=== PATIENT | male | born 1950 | race Caucasian/White ===

== ENCOUNTER 2020-12-18 15:50 | Observation (INO) | payer MEDICARE ==
[2020-12-18] MEDS ORDERED: NORCO 5/325 MG PO PRN (16:21)
[2020-12-18] MEDS ORDERED: MORPHINE SULFATE 4 MG INJ IV PRN (16:22)
[2020-12-18] MEDS ORDERED: MEDICATION INTERVENTION MC SCH ×2 (17:00)
--- NOTE | 2020-12-18 17:01 | PCM.HP ---
History of Present Illness - Chief Complaint Chief Complaint: HYPOXIA History of Present Illness: is a 70 year old male patient of Dr Mcclelland who had an elective outpatient cholecystectomy, after the procedure he was hypoxic requiring 4L oxygen to maintain saturations, he denies chest pain or shortness of breath. has a longstanding history of copd and cardiac disease. he is currently stable and resting but arouses easily and answers questions. has some mild abdominal discomfort, feels very fatigued and weak but no other specific complaints. - Review of Systems Constitutional: No Fever, No Chills Respiratory: No Cough, No Short Of Breath Cardiac: No Chest Pain, No Edema, No Syncope Abdominal/Gastrointestinal: Abdominal Pain, No Nausea, No Vomiting, No Diarrhea Skin: No Rash All Other Systems: Reviewed and Negative Medications & Allergies Home Medications: Home Medication List Amiodarone HCl 200 mg [Cordarone 200 MG] 200 mg PO DAILY 12/18/14 [History Confirmed 12/18/20] Amlodipine Besylate 5 mg [Norvasc 5 mg] 5 mg PO DAILY 12/18/14 [History Confirmed 12/18/20] Furosemide 20 mg PO BID 12/18/14 [History Confirmed 12/18/20] Losartan/Hydrochlorothiazide [Losartan-Hctz 100-25 mg Tab] 1 tab PO DAILY 12/18/14 [History Confirmed 12/18/20] Metoprolol Tartrate 50 mg [Lopressor 50 MG] 100 mg PO BID 12/18/14 [History Confirmed 12/18/20] Potassium Chloride 20 Meq [Klor-Con 20 MEQ] 20 meq PO DAILY 12/18/14 [History Confirmed 12/18/20] Warfarin Sodium 5 mg PO DAILY 12/18/14 [History Confirmed 12/18/20] Arformoterol Tartrate [Brovana] 15 mcg IH BID 12/05/20 [History Confirmed 12/18/20] Empagliflozin [Jardiance] 10 mg PO DAILY 12/05/20 [History Confirmed 12/18/20] Ezetimibe 10 mg [Zetia 10 MG] 10 mg PO DAILY 12/05/20 [History Confirmed 12/18/20] Tamsulosin HCl 0.4 mg [Flomax 0.4 MG] 0.4 mg PO DAILY 12/05/20 [History Confirmed 12/18/20] Hydrocodone/Acetaminophen [Hydrocodone-Acetamin 5-325 mg ] 1 tab PO Q4H PRN 4 Days #24 tablet MDD 6 12/18/20 [Rx Confirmed 12/18/20] [place]-3 Fatty Acids/Fish Oil [Fish Oil 1,200 mg Softgel] 1 cap PO BID #0 12/18/20 [Rx Confirmed 12/18/20] Allergies/Adverse Reactions: Allergies Allergy/AdvReac Type Severity Reaction Status Date / Time digoxin AdvReac Severe Verified 12/18/20 10:31 - Past Medical History Past Medical History: Yes Neurological History: No Pertinent History ENT History: No Pertinent History Cardiac History: Aneurysm, Arrhythmia, Coronary Artery Disease, High Cholesterol, Hypertension, Myocardial Infarction ([place]) Respiratory History: COPD Endocrine Medical History: Diabetes Type II Musculoskelatal History: No Pertinent History GI Medical History: GERD History: No Pertinent History Pyscho-Social History: No Pertinent History Male Reproductive Disorders: No Pertinent History - Past Surgical History Past Surgical History: Yes Neuro Surgical History: No Pertinent History Cardiac History: CABG, Internal Defibrillator, Pacemaker, Other Respiratory Surgery: No Pertinent History GI Surgical History: No Pertinent History Genitourinary Surgical Hx: No Pertinent History Musculskeletal Surgical Hx: No Pertinent History Male Surgical History: No Pertinent History Other Surgical History: heart Ablation Nov 2008. Open heart surgery 2007. Pacer/difibrilator - Social History Smoking Status: Never smoker Exposure to second hand smoke: No Alcohol: None Drug Use: none - Physical Exam Vital Signs: Vital Signs - 24 hr Temp Pulse Resp BP Pulse Ox 12/18/20 16:34 98.2 F 69 16 129/63 97 General Appearance: no apparent distress, obese Neurologic Exam: alert, oriented x 3, cooperative Respiratory Exam: normal breath sounds, lungs clear, diminished breath sounds, prolonged expirations, No respiratory distress Cardiovascular Exam: regular rate/rhythm, normal heart sounds, normal peripheral pulses Gastrointestinal/Abdomen Exam: soft, other (port sites clean, dry, intact and well approximated), No distention, No mass, No guarding Skin Exam: normal color, warm, dry, No rash Results - Radiology Impressions Radiology Exams & Impressions: Radiology Procedures Category Date Time Status CHEST 1 VIEW (PORTABLE) Routine Exams 12/18/20 16:55 Ordered Assessment/Plan (1) Hypoxia Current Visit: Yes Status: Acute Assessment & Plan: stable currently on 4L nasal cannula, prolonged breath sounds but no wheezing or crackles. will check chest xray, order PRN nebs Code(s): R09.02 - HYPOXEMIA (2) COPD (chronic obstructive pulmonary disease) Current Visit: Yes Status: Acute (3) Coronary arteriosclerosis Current Visit: Yes Status: Acute (4) Atrial fibrillation Current Visit: Yes Status: Acute Assessment & Plan: amiodarone and metoprolol restarted as well as warfarin, will check INR today Code(s): I48.91 - UNSPECIFIED ATRIAL FIBRILLATION (5) Diabetes mellitus Current Visit: Yes Status: Acute Assessment & Plan: normally on insulin pump, will cover with sliding scale tonight. Code(s): E11.9 - TYPE 2 DIABETES MELLITUS WITHOUT COMPLICATIONS
[2020-12-18] MEDS ORDERED: HUMALOG SQ PRN (17:02)
[2020-12-18] MEDS: Zofran 4 MG/2 ML VIAL IV PRN (17:39)
[2020-12-18 17:50] LABS: Absolute Neutrophil Ct (ANC) 7.23 (1.4-6.9); BASOPHIL % 0.1 % (0.0-0.4); Basophil (Absolute #) 0.01 (0-0.4); Eosinophil % 2.6 % (0.00-5.0); Eosinophil (Absolute #) 0.25 (0-0.5); Hematocrit 41.3 % (42-50); Hemoglobin 13.5 gm/dl (12.5-18.0); Lymphocyte (Absolute #) 1.39 (1.0-4.6); Lymphocytes % 14.4 % (24.0-44.0); Mean Cell Volume 91.8 fl (78-100); Mean Corpuscular Hgb Concent. 32.7 g/dl (32-36); Mean Platelet Volume 10.6 fl (7.5-11.0); Monocyte (Absolute #) 0.74 (0.0-1.3); Monocytes % 7.7 % (0.0-12.0); Neutrophil % 75.2 % (36.0-66.0); Platelet Count 184 K/mm3 (150-450); Red Cell Distribution Width 15.9 % (11.5-14.0); White Blood Count 9.6 K/mm3 (4.0-10.5)
[2020-12-18 17:56] LABS: INR 1.44 (0.8-3.0); PROTIME 16.3 SECONDS (8.83-12.87)
[2020-12-18 18:00] LABS: ALKALINE PHOSPHATASE 58 U/L (38-126); ANION GAP 10.8 MEQ/L (5-15); BLOOD UREA NITROGEN 19 mg/dL (9-20); CHLORIDE 104 mmol/L (98-107); Calcium 9.3 mg/dL (8.4-10.2); Carbon Dioxide 26 mmol/L (22-30); Creatinine 1 0.96 mg/dL (0.66-1.25); EST GLOMERULAR FILTRATION RATE > 60.0 ML/MIN; Glucose 132 mg/dL (74-106); Potassium 3.9 mmol/L (3.5-5.1); SGOT/AST 25 U/L (17-59); SGPT/ALT 17 U/L (0-50); SODIUM 137 mmol/L (137-145); Total Protein 6.9 g/dL (6.3-8.2)
--- NOTE | 2020-12-18 18:04 | XRAY ---
Indication: Hypoxia. COPD. Comparison: December 18, 2014. Portable apical lordotic chest now demonstrates cardiomegaly and tiny bibasilar effusions concerning for mild/early cardiac decompensation. Upper lungs clear. Stable CABG surgery and left AICD. Bony thorax intact again with mild osteopenia and right shoulder surgical clips. Impression: New cardiomegaly and tiny bibasilar effusions. Rule out mild/early cardiac decompensation.
[2020-12-18] MEDS: LASIX 20 MG PO SCH (18:35)
[2020-12-18 18:40] LABS: INFLUENZA A NEGATIVE (NEGATIVE); INFLUENZA B NEGATIVE (NEGATIVE); RESPIRATORY SYNCTIAL VIRUS NEGATIVE (Negative)
[2020-12-18] MEDS ORDERED: OMEGA PO SCH (22:00)
[2020-12-18] MEDS ORDERED: ARFORMOTEROL TARTRATE 15 MCG IH SCH (22:00)
[2020-12-18] MEDS ORDERED: FISH OIL PO SCH (22:00)
[2020-12-18] MEDS ORDERED: FATTY ACIDS PO SCH (22:00)
[2020-12-18] MEDS: FISH OIL 1,000 MG CAPSULE PO SCH (22:13)
[2020-12-18] MEDS: Lopressor 50 MG PO SCH (22:13)
[2020-12-19] MEDS: Zofran 4 MG/2 ML VIAL IV PRN (04:07)
[2020-12-19 05:05] VITALS: PULSE 72
[2020-12-19 07:40] VITALS: BP 122/66
[2020-12-19 08:19] VITALS: O2SAT 90
[2020-12-19] MEDS: LASIX 20 MG PO SCH (09:03)
[2020-12-19] MEDS: FISH OIL 1,000 MG CAPSULE PO SCH (09:04)
[2020-12-19] MEDS: Lopressor 50 MG PO SCH (09:04)
[2020-12-19] MEDS ORDERED: NON-FORMULARY ITEM (Empagliflozin [Jardiance] 10 MG) PO SCH (10:00)
[2020-12-19] MEDS ORDERED: Klor Con 10 MEQ PO SCH (10:00)
[2020-12-19] MEDS ORDERED: Cozaar 50 MG PO SCH (10:00)
[2020-12-19] MEDS ORDERED: NORVASC 5 MG PO SCH (10:00)
[2020-12-19] MEDS ORDERED: WARFARIN SODIUM 5 MG PO SCH (10:00)
[2020-12-19] MEDS ORDERED: Cordarone 200 MG PO SCH (10:00)
[2020-12-19] MEDS ORDERED: NON-FORMULARY ITEM (Losartan/Hydrochlorothiazide [Losartan-Hctz 100-25 Mg Tab] 1 TAB) PO SCH (10:00)
[2020-12-19] MEDS ORDERED: hydroDIURIL 25 MG PO SCH (10:00)
[2020-12-19] MEDS ORDERED: Flomax 0.4 MG PO SCH (10:00)
[2020-12-19] MEDS ORDERED: Zetia 10 MG PO SCH (10:00)
[2020-12-19] MEDS ORDERED: NON-FORMULARY ITEM (Potassium Chloride 20 Meq [Klor-Con 20 Meq] 20 MEQ) PO SCH (10:00)
--- NOTE | 2020-12-19 11:27 | SSS ---
DISCHARGE DIAGNOSES: 1) HYPOXIA. 2) CHOLECYSTECTOMY WITH DR. FRANCESCO GUZMAN. HOSPITAL COURSE: The patient is a 70 year-old white male patient who had laparoscopic cholecystectomy after which the patient continued to be somewhat hypoxic for the next couple of hours. It was felt the patient needed to be admitted to the hospital for further evaluation and management. It is noted on the patient's history that he uses oxygen at night due to hypoxia issues. He does not need it during the daytime. He does see a pet nutrition specialist, I believe, in [place]. The patient's medical history is otherwise significant for atrial fibrillation, hypertension and benign prostatic hypertrophy. The patient was admitted to the [facility] [place] and just monitored. Currently, his oxygen saturation is 90% at rest. The patient will have O2 saturations checked with ambulation. He will likely need oxygen during the daytime at least in the immediate post-surgery time. The patient is requested to get pulse oxygen monitor at home so that he can monitor his oxygen at home but otherwise the patient ate 100% of his breakfast this morning. He has had no further issues during his stay other than the mild hypoxia which has been exacerbated by his surgery. The patient is felt to be ready for discharge home this morning, to use his oxygen during the daytime as well and keep an eye on his oxygen saturations. He will have follow up in our office within a week and follow up with the surgeon for post-surgical follow up as well. He will continue to use his home medications with Cordarone 200 mg a day, amlodipine 5 mg a day, furosemide 20 mg b.i.d., losartan/hydrochlorothiazide 25 mg daily, metoprolol 50 mg b.i.d., potassium 20 mEq daily, warfarin 5 mg a day, Brovana 15 mcg twice a day, Jardiance 10 mg a day, Zetia 10 mg a day, Tamsulosin 0.4 mg a day, hydrocodone 5/325 PRN pain.
[2020-12-20] MEDS ORDERED: Coumadin 5 MG PO SCH (18:00)
== END 2020-12-19 09:49 | disposition home or self-care (01) ==
LOC: MED SURG 15:50
PROVIDERS: ADMIT Family Medicine; ATTEND Family Medicine
DX: R09.02 Hypoxemia (principal); J44.9 Chronic obstructive pulmonary disease, unspecified; I25.10 Atherosclerotic heart disease of native coronary artery without angina pectoris; I48.91 Unspecified atrial fibrillation; E11.9 Type 2 diabetes mellitus without complications; R10.9 Unspecified abdominal pain; E78.5 Hyperlipidemia, unspecified; Z20.828 Contact with and (suspected) exposure to other viral communicable diseases; I10 Essential (primary) hypertension; I25.2 Old myocardial infarction; Z79.899 Other long term (current) drug therapy; Z99.81 Dependence on supplemental oxygen; Z79.01 Long term (current) use of anticoagulants; E78.00 Pure hypercholesterolemia, unspecified; Z98.890 Other specified postprocedural states
CPT/HCPCS: 0241U; 36415; 71045; 80053; 82947; 83880; 85025; 85610; 85730; 94762; G0378; J0330; J0694; J2250; J2270; J2370; J2405; J3010; A9270-GY

== ENCOUNTER → 2020-12-18 | Day surgery (SDC) | payer MEDICARE ==
[~2020-12-18] MED LIST: Amidate 20 MG/10 ML IV ONE; BRIDION 200MG/2ML IV ONE; Lactated Ringers 1,000 ML IV ONE; MEFOXIN 2 GM PREMIX** 2 GM/50 ML ML IV ONE; MORPHINE SULFATE 10 MG/ML ONE; PHENYLEPHRINE HCL ONE; Proair Hfa MDI IH ONE; Quelicin Fliptop 200 MG/10 ML ONE; SUBLIMAZE 250 MCG/5 ML ONE; Sensorcaine 0.25% 10 ML ONE; Versed 2 MG/2 ML Injection ONE; Zemuron 100 MG/10 ML ONE
--- NOTE | 2020-12-18 09:04 | HP ---
DATE OF SURGERY: 12/18/2020 HISTORY OF PRESENT ILLNESS: The patient is a 70 year-old with right upper quadrant, right flank pain. CT scan showed a 3.2 cm gallstone. He has had decreased appetite. It was felt he had acute exacerbation of chronic cholecystitis, symptomatic cholelithiasis. It was felt he would benefit from cholecystectomy. He did receive cardiac clearance from his clinical director. PAST MEDICAL HISTORY: Heart disease. Chronic obstructive pulmonary disease. Diabetes. PAST SURGICAL HISTORY: Aortic valve repair, bypass surgery, cardiac cath in the past. He was set up for cholecystectomy as mentioned. MEDICATIONS: Amiodarone, furosemide, Klor-Con, losartan/hydrochlorothiazide, amlodipine, metoprolol, fish oil, warfarin, Jardiance, Zetia, Humalog, Flomax, Brovana, supplemental oxygen. ALLERGIES: NKDA. FAMILY HISTORY: Negative in regards to this problem. SOCIAL HISTORY: No alcohol abuse currently. REVIEW OF SYSTEMS: Fourteen systems reviewed pertinent for multiple medical problem noted above. PHYSICAL EXAMINATION: GENERAL: No acute distress. HEENT: Sclerae nonicteric. NECK: No JVD. CHEST: Equal excursion, nonlabored breathing. CVS: Regular rate and rhythm. ABDOMEN: Soft. No peritoneal signs. Mild right upper quadrant tenderness and flank area. EXTREMITIES: No significant edema. NEURO: Alert, oriented, moving extremities symmetrically. PSYCH: Appropriate mood and affect. IMPRESSION: Acute exacerbation of chronic cholecystitis, symptomatic cholelithiasis. I feel the patient will benefit from cholecystectomy. He was shown the gallbladder pamphlet, explained the risks in detail but not limited to bleeding or infection, risk of trocar injury or hernia, risk of bowel, bladder or blood vessel injury, risk of bile leak, bile duct injury, retained stone or sludge possibly requiring further procedure either open or ERCP, general risk of anesthesia, deep venous thrombosis, pulmonary embolism, pneumonia, perioperative risk of aches, pains, bloating, constipation and/or loose stools possibly even chronic in nature, possibility inability to improve his symptoms possibly requiring other studies or procedures. He understands and agrees to the planned procedure, will proceed with laparoscopic cholecystectomy with possible open as an outpatient.
[2020-12-18] MEDS: Lactated Ringers 1,000 ML IV SCH (10:38)
[2020-12-18] MEDS: MEFOXIN 2 GM PREMIX** 2 GM/50 ML ML IV ONE (11:08)
[2020-12-18 11:24] LABS: INR 1.37 (0.8-3.0); PROTIME 15.5 SECONDS (8.83-12.87)
[2020-12-18 11:27] LABS: PTT 29.2 SECONDS (24.1-36.1)
[2020-12-18 14:57] VITALS: PULSE 70; O2SAT 97
[2020-12-18 15:31] VITALS: BP 122/70
--- NOTE | 2020-12-19 09:11 | OP ---
SURGERY DATE/TIME: 12/18/2020 1208 PREOPERATIVE DIAGNOSES: 1) Acute exacerbation chronic cholecystitis, symptomatic cholelithiasis (3.2 cm gallstone). 2) Obesity. POSTOPERATIVE DIAGNOSES: 1) Acute exacerbation chronic cholecystitis, symptomatic cholelithiasis (3.2 cm gallstone). 2) Obesity. PROCEDURE: Laparoscopic cholecystectomy. SURGEON: Dr. Cesar Ornelas. ANESTHESIA: General. ESTIMATED BLOOD LOSS: Minimal. INDICATIONS: As noted above. Risks and benefits explained in detail but not limited to and consent obtained. DESCRIPTION OF PROCEDURE AND FINDINGS: The patient is taken to the operating room. General anesthesia induced. Abdomen prepped and draped in the usual sterile fashion. After official time out and no disagreement with planned procedure, a transverse incision made at the supraumbilical area. Fascia grasped and pulled upward. Veress needle inserted and tested with saline. Pneumoperitoneum accomplished insufflating opening pressure of 0-15. A 5 mm bladeless port and camera inserted without difficulty followed by two - 5 mm right upper quadrant ports and 11 mm epigastric port. The gallbladder carefully grasped retracted over the edge of the liver, dissected posterior lateral to anterior fashion. It is quite a vascular gallbladder. After carefully dissecting the main cystic duct skeletonized until the critical view obtained both anteriorly and posteriorly. Once this is accomplished, the cystic duct clipped x3 and divided in the usual fashion. The gallbladder slowly and carefully dissected. It is quite vascular requiring clipping additional oozing side branches off the cystic artery as necessary directly on the gallbladder wall. Again, this is quite a vascular gallbladder requiring additional clipping of the oozing side branches. The gallbladder is slowly and carefully dissected free and released from final attachments to the anterior edge of the liver, the liver bed re-inspected. Clips noted to be in place in cystic duct and cystic artery stumps. No signs of any active bleeding or bile leakage. It was felt there was no benefit from drain placement. At this point the gallbladder is released from final attachments to anterior edge of the liver, placed in the provided sac by the hospital, pulled up in epigastrium and decompressed of bile. The gallbladder itself was opened outside the abdomen staying in the bag. Reaching down and crushing up this 3.2 cm gallstone with a Lawrence clamp taking out in pieces finally allowing the gallbladder and sac to be removed and passed off. Liver bed re-inspected. Clips noted in place in cystic duct and cystic artery stumps. No signs of any active bleeding or bile leakage. I felt there was no benefit in drain placement. Pneumoperitoneum decompressed after closing the fascial defect in the epigastrium with figure-of-8 with #1 Vicryl. The wound is irrigated out. Skin incision closed with 4-0 Vicryl. Steri-Strips and sterile dressing applied. 0.25% Marcaine local had been injected along the skin incision fascial defect at the beginning of the procedure. There were no immediate complications. Findings discussed with the family out in the waiting area.
== END ==
LOC: SDC 10:24
PROVIDERS: ATTEND Surgery
DX: K80.00 Calculus of gallbladder with acute cholecystitis without obstruction (principal); E66.9 Obesity, unspecified; Z79.01 Long term (current) use of anticoagulants; E11.9 Type 2 diabetes mellitus without complications; J44.9 Chronic obstructive pulmonary disease, unspecified; Z79.899 Other long term (current) drug therapy
CPT/HCPCS: 36415; 82947; 85610; 85730; 94762; 99100; J0330; J0694; J2250; J2270; J2370; J3010; A9270-GY

== ENCOUNTER 2021-12-18 07:29 | Day surgery (SDC) | payer MEDICARE ==
[~2021-12-18 07:29] MED LIST changes: +Ak-Dilate OPHTHALMIC*** 1.065 ML, Cyclogyl 1% OPHTH SOL 1.065 ML, GATIFLOXACIN 0.5% OPH... OP ONE; -Amidate 20 MG/10 ML IV ONE; +BETADINE 5% OPHTHALMIC 30 ML OP ONE; -BRIDION 200MG/2ML IV ONE; -Lactated Ringers 1,000 ML IV ONE; +Lactated Ringers 1,000 ML IV SCH; -MEFOXIN 2 GM PREMIX** 2 GM/50 ML ML IV ONE; -MORPHINE SULFATE 10 MG/ML ONE; +NON-FORMULARY ITEM OP ONE; -PHENYLEPHRINE HCL ONE; -Proair Hfa MDI IH ONE; -Quelicin Fliptop 200 MG/10 ML ONE; -SUBLIMAZE 250 MCG/5 ML ONE; -Sensorcaine 0.25% 10 ML ONE; +TETRACAINE 0.5% STERI-UNIT SOL OP ONE; -Versed 2 MG/2 ML Injection ONE; -Zemuron 100 MG/10 ML ONE; +cefUROXime sodium 0.005 GM in Sodium Chloride Flush 30 ML*** 0.5 ML IJ ONE
[2021-12-18] MEDS ORDERED: Lactated Ringers 1,000 ML IV ONE (07:37)
[2021-12-18] MEDS ORDERED: ACETAZOLAMIDE 250 MG TABLET PO ONE (09:00)
[2021-12-18] MEDS ORDERED: LIDOCAINE HCL 1% 50 MG/5 ML VL PF IJ ONE (09:00)
[2021-12-18] MEDS ORDERED: Epinephrine Preservative Free 1 MG/ML IJ ONE (09:00)
[2021-12-18] MEDS ORDERED: Zofran 4 MG/2 ML VIAL IV PRN (09:00)
[2021-12-18] MEDS ORDERED: DIPRIVAN 200 MG/20 ML IV ONE (09:48)
[2021-12-18 10:43] VITALS: BP 127/82; PULSE 82; O2SAT 95
== END 2021-12-18 10:53 | disposition home or self-care (01) ==
LOC: SDC 07:29
PROVIDERS: ATTEND Ophthalmology
DX: H25.812 Combined forms of age-related cataract, left eye (principal); E11.9 Type 2 diabetes mellitus without complications; I10 Essential (primary) hypertension; J44.9 Chronic obstructive pulmonary disease, unspecified
CPT/HCPCS: 82947; 93005; 99100; C1780; J0171; J2001; J2704; A9270-GY

== ENCOUNTER 2022-02-14 20:01 | Emergency (ER) | payer MEDICARE ==
[2022-02-14 20:29] VITALS: O2SAT 96
--- NOTE | 2022-02-14 22:08 | ERPHSYRPT ---
- History of Present Illness Source: patient Exam Limitations: no limitations Patient Subjective Stated Complaint: pt states "I was watering the flower and fell over a stick. I hit my ribs and chest." Triage Nursing Assessment: pt ambulated into the er; pt is axo x4; c/o fall; pt states 10/10 pain to ribs and epigastric region; pt has 1 cm laceration to scalp; pt states dull/ tingling pain to back of head; pupils 3 mm and PERRL; strong junior health information director; strong junior pushes; no bruising present to epigastric region; tenderness present with palpitation; pt states sharp pain to epigastric region; hypertensive Physician History: 71 yo wm lost his balance earlier today and fell, hitting his head on concrete. Pt was dazed and complains of CAMEJO and anterior-inferior thoracic pain. Occurred: other (This morning) Reason for Fall: tripped Injuries/Pain Location: head, chest, abdomen Loss of Consciousness: no loss of consciousness, dazed Quality: aching Severity of Pain-Max: moderate Severity of Pain-Current: moderate Modifying Factors: Improves With: movement Allergies/Adverse Reactions: digoxin Adverse Reaction (Severe, Verified 02/14/22 20:16) LOSS OF APPITITE- Home Medications: Amiodarone HCl 200 mg [Cordarone 200 MG] 200 mg PO DAILY 12/18/14 [History] Furosemide 20 mg PO DAILY 12/18/14 [History] Losartan/Hydrochlorothiazide [Losartan-Hctz 100-25 mg Tab] 1 tab PO DAILY 12/18 [History] Metoprolol Tartrate 50 mg [Lopressor 50 MG] 100 mg PO BID 12/18/14 [History] Potassium Chloride 20 Meq [Klor-Con 20 MEQ] 20 meq PO DAILY 12/18/14 [History] Warfarin Sodium 5 mg PO DAILY 12/18/14 [History] Arformoterol Tartrate [Brovana] 15 mcg IH BID 12/05/20 [History] Empagliflozin [Jardiance] 25 mg PO DAILY 12/05/20 [History] Ezetimibe 10 mg [Zetia 10 MG] 10 mg PO DAILY 12/05/20 [History] Tamsulosin HCl 0.4 mg [Flomax 0.4 MG] 0.4 mg PO DAILY 12/05/20 [History] Amlodipine Besylate 5 mg [Norvasc 5 mg] 5 mg PO DAILY 12/12/21 [History] Hydrochlorothiazide 25 mg [hydroDIURIL 25 MG] 25 mg PO DAILY 12/12/21 [History] Tolterodine Tartrate [Tolterodine Tartrate ER] 2 mg PO DAILY 12/12/21 [History] [place] 3/Dha/Epa/Other Om3/D3 [[place]-3 + Vitamin D3 Liquid] 1 cap PO DAILY 02/13/22 [History] Vit D3-Vit K/[place]/Hops [Ostera Tablet] 1 each PO DAILY 02/13/22 [History] Hx Tetanus, Diphtheria Vaccination/Date Given: No (unknown) Hx Influenza Vaccination/Date Given: No Hx Pneumococcal Vaccination/Date Given: No Travel Risk - International Travel Have you traveled outside of the country in past 3 weeks: No - Coronavirus Screening Are you exhibiting any of the following symptoms?: No Close contact with a COVID-19 positive Pt in past 14-21 Days: No - Vaccine Status Have you recieved a Covid-19 vaccination: No - Review of Systems Constitutional: No Symptoms Eyes: No Symptoms Ears, Nose, & Throat: No Symptoms Respiratory: No Symptoms Cardiac: No Symptoms Abdominal/Gastrointestinal: No Symptoms, Abdominal Pain Genitourinary Symptoms: No Symptoms Musculoskeletal: No Symptoms Skin: No Symptoms Neurological: No Symptoms, Headache Psychological: No Symptoms Endocrine: No Symptoms Hematologic/Lymphatic: No Symptoms Immunological/Allergic: No Symptoms - Past Medical History Pertinent Past Medical History: Yes Neurological History: No Pertinent History ENT History: No Pertinent History Cardiac History: Aneurysm, Arrhythmia, Coronary Artery Disease, Deep Vein Thrombosis, High Cholesterol, Hypertension, Myocardial Infarction ([place]) Respiratory History: COPD Endocrine Medical History: Diabetes Type II Musculoskeletal History: No Pertinent History GI Medical History: GERD History: No Pertinent History Psycho-Social History: No Pertinent History Male Reproductive Disorders: No Pertinent History Other Medical History: uses O2@hs on 2L - Past Surgical History Past Surgical History: Yes Neuro Surgical History: No Pertinent History Cardiac: CABG, Internal Defibrillator, Pacemaker, Other Respiratory: No Pertinent History Gastrointestinal: Cholecystectomy Genitourinary: No Pertinent History Musculoskeletal: No Pertinent History Male Surgical History: No Pertinent History Other Surgical History: heart Ablation Nov 2008. Open heart surgery 2007. Pacer/difibrilator. 9 cardioversions - Social History Smoking Status: Never smoker Exposure to second hand smoke: No Drug Use: none Patient Lives Alone: No Significant Family History: no pertinent family hx - Nursing Vital Signs Nursing Vital Signs: Initial Vital Signs Temperature 98.6 F 02/14/22 20:17 Pulse Rate 62 02/14/22 20:17 Respiratory Rate 24 02/14/22 20:17 Blood Pressure 142/77 02/14/22 20:17 O2 Sat by Pulse Oximetry 96 02/14/22 20:17 Pain Scale Pain Intensity 10 Hypertensive - Dhruv Coma Score Best Eye Response ([place]): (4) open spontaneously Best Verbal Response (Dhruv): (5) oriented Best Motor Response (Dhruv): (6) obeys commands Dhruv Total: 15 - Physical Exam General Appearance: no apparent distress Head Injury: tenderness (Occiput TTP) Eye Exam: PERRL/EOMI, eyes nml inspection ENT Exam: airway nml, No evidence of ENT injury, No clear fluid (ears), No clear fluid (nose) Neck Exam: supple, trachea midline, full range of motion, normal inspection (C- spine NTTP) Respiratory/Chest Exam: chest tenderness (L inferior-anterior thorax TTP), normal breath sounds, No respiratory distress Cardiovascular Exam: normal heart sounds, regular rate/rhythm, No murmur Gastrointestinal Exam: soft, normal bowel sounds, tenderness (TTP LUQ/No guarding or rebound) Back Exam: normal inspection, vertebral tenderness (No T/L-spine TTP) Extremity Exam: normal inspection, normal range of motion, pelvis stable Peripheral Pulses: carotid (R): 2+, carotid (L): 2+ Neurologic Exam: alert, oriented x 3, cooperative, parts technician II-XII nml as tested, normal mood/affect, nml station & gait, sensation nml, No motor deficits, No sensory deficit Skin Exam: normal color, warm, dry SpO2 Interpretation: normal SpO2: 96 O2 Delivery: Room Air - Course Nursing assessment & vital signs reviewed: Yes - CT Exams Head CT Interpretation: Discussed w/radiologist (Posterior scalp hematoma) Chest CT Interpretation: Discussed w/radiologist (No acute traumatic finding) Abdomen/Pelvis CT Interpretation: Discussed w/radiologist (No acute traumatic findings) Ordered Tests: Active Orders 24 hr Category Date Time Status ABDOMEN AND PELVIS W/0 CONTRAS [CT] Stat Exams 02/14/22 20:53 Taken CHEST WITHOUT CONTRAST [CT] Stat Exams 02/14/22 20:52 Taken HEAD WITHOUT CONTRAST [CT] Stat Exams 02/14/22 20:52 Taken Medication Summary Discontinued Medications Generic Name Dose Route Start Last Admin Trade Name William PRN Reason Stop Dose Admin Ketorolac Tromethamine 30 mg 02/14/22 22:11 02/14/22 22:14 Ketorolac Tromethamine 30 Mg/Ml Inj IM 02/14/22 22:12 30 mg STAT ONE Administration Ketorolac Tromethamine Confirm 02/14/22 22:14 Ketorolac Tromethamine 30 Mg/Ml Inj Administered 02/14/22 22:15 Dose 30 mg .ROUTE .STK-MED ONE - Progress Progress: improved Progress Note: 02/14/22 22:12 30mg IM Toradol Counseled pt/family regarding: diagnosis, need for follow-up, rad results - Departure Departure Disposition: Home Clinical Impression: Minor head injury, Chest wall contusion Condition: Stable Critical Care Time: No Referrals: DANN FLORIAN [Primary Care Provider] - Follow up/PCP as directed Instructions: Contusion (DC), Preventing Falls in Older Adults, Minor Head Injury (DC) Additional Instructions: Ice to contused areas for 12-24 hours Tylenol for pain Follow up with your family MD for continued pain Return to ER for worsening headache/Focal weakness/confusion
[2022-02-14] MEDS ORDERED: TORAdol 30 mg Injection IM ONE (22:11)
[2022-02-14 22:13] VITALS: BP 118/66; PULSE 60
[2022-02-14] MEDS ORDERED: TORAdol 30 mg Injection ONE (22:14)
--- NOTE | 2022-02-15 09:20 | XRAY ---
Indication: Posterior head injury with laceration. Multiple contiguous axial images obtained through the head without contrast. Comparison: None Age-appropriate global atrophy and minimal periventricular degenerative micro-ischemia bilaterally. No acute intracranial hemorrhage, abnormal extra-axial fluid collection, or mass effect. Fourth ventricle is midline without hydrocephalus. Large posterior scalp hematoma. Bony calvarium intact. Visualized paranasal sinuses and mastoid air cells are clear. Impression: 1. Large posterior scalp hematoma. No underlying fracture or acute intracranial abnormalities. 2. Atrophy and degenerative micro-ischemia within normal limits for patient's age.
--- NOTE | 2022-02-15 09:22 | XRAY ---
Indication: Chest pain following fall. Multiple contiguous axial images obtained through the chest without contrast. Comparison: None Lungs demonstrates mild scattered subsegmental atelectasis/scarring and tiny calcified granulomas bilaterally. No suspicious pulmonary mass, infiltrate, effusion, or pneumothorax. Heart borderline enlarged with CABG surgery and left AICD. Aorta mildly arteriosclerotic without aneurysm. Small left and tiny right hilar calcified nodes. No pathologic mediastinal lymphadenopathy. Tiny hiatal hernia. Bony thorax intact with osteopenia flowing osteophytes throughout the spine. CT abdomen/pelvis reported separately. Impression: 1. Scattered atelectasis/scarring, borderline cardiomegaly, hiatal hernia, arteriosclerotic disease, chronic bony findings, and old granulomatous disease. 2. Remaining CT chest without contrast exam is negative.
--- NOTE | 2022-02-15 09:24 | XRAY ---
Indication: Abdomen pain. Status post fall. Multiple contiguous axial images obtained through the abdomen and pelvis without contrast. Comparison: November 06, 2020. CT chest reported separately. Noncontrasted stomach and bowel loops appear nonobstructed. Stable nonobstructing left renal calculus, bilateral renal cysts, and splenic calcified granulomas. Interval cholecystectomy. No free fluid/air. Remaining liver, pancreas, spleen, adrenal glands, kidneys, ureters, and bladder are unremarkable for noncontrast exam. Again minimal scattered aortoiliac calcifications without AAA. Osseous structures intact again with osteopenia, multilevel degenerative spondylosis, tiny/small multilevel thoracolumbar Schmorl nodes, and remote L5 superior endplate fracture. Impression: 1. Again bilateral renal cysts, nonobstructing left renal calculus, and chronic bony findings. 2. Remaining CT abdomen/pelvis without contrast exam is negative.
== END 2022-02-14 22:36 | disposition home or self-care (01) ==
LOC: ED 20:01
DX: S00.03XA Contusion of scalp, initial encounter (principal); S20.214A Contusion of middle front wall of thorax, initial encounter; W01.10XA Fall on same level from slipping, tripping and stumbling with subsequent striking against unspecified object, initial encounter; Y93.H2 Activity, gardening and landscaping; R51.9 Headache, unspecified; R07.9 Chest pain, unspecified; E78.5 Hyperlipidemia, unspecified; I10 Essential (primary) hypertension; J44.9 Chronic obstructive pulmonary disease, unspecified; E11.9 Type 2 diabetes mellitus without complications; Z79.01 Long term (current) use of anticoagulants; Z79.84 Long term (current) use of oral hypoglycemic drugs; Z79.899 Other long term (current) drug therapy; Z28.310 Unvaccinated for COVID-19
CPT/HCPCS: 70450; 71250; 74176; 96372; 99284; J1885

== ENCOUNTER 2022-03-19 06:29 | Day surgery (SDC) | payer MEDICARE ==
[~2022-03-19 06:29] MED LIST changes: +ACETAZOLAMIDE 250 MG TABLET PO ONE; +Zofran 4 MG/2 ML VIAL IV PRN
[2022-03-19] MEDS ORDERED: Lactated Ringers 1,000 ML IV ONE (07:18)
[2022-03-19 07:46] LABS: INR 3.27 (0.8-3.0); PROTIME 31.1 SECONDS (9.4-12.5)
[2022-03-19] MEDS ORDERED: ACETAZOLAMIDE 250 MG TABLET PO ONE (08:00)
[2022-03-19] MEDS ORDERED: Zofran 4 MG/2 ML VIAL IV PRN (08:00)
[2022-03-19] MEDS ORDERED: DIPRIVAN 200 MG/20 ML IV ONE ×2 (09:09→09:20)
[2022-03-19 09:46] VITALS: PULSE 60
[2022-03-19 09:50] VITALS: BP 134/72; O2SAT 96
[2022-03-19] MEDS ORDERED: LIDOCAINE HCL 1% 50 MG/5 ML VL PF IJ ONE (16:00)
[2022-03-19] MEDS ORDERED: Epinephrine Preservative Free 1 MG/ML INTRAOP ONE (16:00)
== END 2022-03-19 09:59 | disposition home or self-care (01) ==
LOC: SDC 06:29
PROVIDERS: ATTEND Ophthalmology
DX: H25.811 Combined forms of age-related cataract, right eye (principal); E11.9 Type 2 diabetes mellitus without complications; Z79.01 Long term (current) use of anticoagulants
CPT/HCPCS: 36415; 82947; 85610; 99100; C1780; J0171; J2001; J2704; A9270-GY

== ENCOUNTER 2025-05-11 09:29 | Emergency (ER) | payer MEDICARE ==
[2025-05-11 10:28] VITALS: TEMP 97.2
--- NOTE | 2025-05-11 10:57 | ERPHSYRPT ---
- History of Present Illness Time Seen by Provider: 05/11/25 10:17 Historian: patient Exam Limitations: no limitations Patient Subjective Stated Complaint: patient comes in today with abdominal pain in fron and around back of his lower abdomen and he says he cannot cough of sneeze without it hurting. Triage Nursing Assessment: patient came to ED today he says they started him back on his water pills last week but now he is experiencing abdominal pain around midsection, his diabetic pump is working correctly and pacer defibrillator is fine and in place. patient is alert and oriented has some edema noted in bilateral lower extremities. states he thinks its getting worse. was jsut in [facility] few weeks ago for a fall from BP and dehydration as well. has followed up with [facility] since he was released and had medications adjusted Physician History: 74-year-old presents to the emergency room with right lower quadrant abdominal pain patient reports she has had the pain for about 2 weeks intermittently denies any nausea vomiting denies any diarrhea but does report some intermittent constipation reports she has had similar history of pain when he had a kidney stone any fevers or chills denies any recent travel or trauma denies any shortness of breath or chest pain now in ED for further eval Timing/Duration: today, week(s) () Activities at Onset: none Quality: pressure Abdominal Pain Onset Location: RLQ Pain Radiation: no radiation Severity of Pain-Max: mild Severity of Pain-Current: mild Modifying Factors: Improves With: movement Allergies/Adverse Reactions: digoxin Adverse Reaction (Severe, Verified 02/14/22 20:16) LOSS OF APPITITE- semaglutide [From Ozempic] Adverse Reaction (Verified 03/19/22 07:00) dizziness Home Medications: Amiodarone HCl 200 mg [Cordarone 200 MG] 200 mg PO DAILY 12/18/14 [History] Furosemide 40 mg PO BID 12/18/14 [History] Losartan/Hydrochlorothiazide [Losartan-Hctz 100-25 mg Tab] 1 tab PO DAILY 12/18/14 [History] Metoprolol Tartrate 50 mg [Lopressor 50 MG] 100 mg PO BID 12/18/14 [History] Potassium Chloride 20 Meq [Klor-Con 20 MEQ] 20 meq PO DAILY 12/18/14 [History] Warfarin Sodium 5 mg PO DAILY 12/18/14 [History] Arformoterol Tartrate [Brovana] 15 mcg IH BID 12/05/20 [History] Empagliflozin [Jardiance] 25 mg PO DAILY 12/05/20 [History] Ezetimibe 10 mg [Zetia 10 MG] 10 mg PO DAILY 12/05/20 [History] Tamsulosin HCl 0.4 mg [Flomax 0.4 MG] 0.4 mg PO DAILY 12/05/20 [History] Amlodipine Besylate 5 mg [Norvasc 5 mg] 5 mg PO DAILY 12/12/21 [History] Hydrochlorothiazide 25 mg [hydroDIURIL 25 MG] 25 mg PO DAILY 12/12/21 [History] Tolterodine Tartrate [Tolterodine Tartrate ER] 2 mg PO DAILY 12/12/21 [History] Vit D3-Vit K/Berberine/Hops [Ostera Tablet] 1 each PO DAILY 02/13/22 [History] Insulin Lispro [Humalog] 100 unit SQ UD 03/19/22 [History] Atorvastatin Calcium 20 mg PO DAILY 05/11/25 [History] Bicalutamide 1 tab PO DAILY 05/11/25 [History] Hx Tetanus, Diphtheria Vaccination/Date Given: No (unknown) Hx Influenza Vaccination/Date Given: No Hx Pneumococcal Vaccination/Date Given: No Immunizations Up to Date: Yes Travel Risk - International Travel Have you traveled outside of the country in past 3 weeks: No - Emerging Infectious Disease Are you exhibiting symptoms associated with any current EIDs: No - Review of Systems Constitutional: No Fever, No Chills Eyes: No Symptoms Ears, Nose, & Throat: No Symptoms Respiratory: No Cough, No Dyspnea Cardiac: No Chest Pain, No Edema, No Syncope Abdominal/Gastrointestinal: Abdominal Pain, No Nausea, No Vomiting, No Diarrhea Genitourinary Symptoms: No Dysuria Musculoskeletal: No Back Pain, No Neck Pain Skin: No Rash Neurological: No Dizziness, No Focal Weakness, No Sensory Changes Psychological: No Symptoms Endocrine: No Symptoms All Other Systems: Reviewed and Negative - Past Medical History Pertinent Past Medical History: Yes Neurological History: No Pertinent History ENT History: Cataracts Cardiac History: Aneurysm, Arrhythmia, Coronary Artery Disease, Deep Vein Thrombosis, High Cholesterol, Hypertension, Myocardial Infarction ([place]) Respiratory History: COPD Endocrine Medical History: Diabetes Type II Musculoskeletal History: No Pertinent History GI Medical History: GERD History: No Pertinent History Psycho-Social History: No Pertinent History Male Reproductive Disorders: No Pertinent History Other Medical History: uses O2@hs on 2L - Past Surgical History Past Surgical History: Yes Neuro Surgical History: No Pertinent History Cardiac: CABG, Internal Defibrillator, Pacemaker, Other Respiratory: No Pertinent History Gastrointestinal: Cholecystectomy Genitourinary: No Pertinent History Musculoskeletal: No Pertinent History Male Surgical History: No Pertinent History Other Surgical History: heart Ablation Nov 2008. Open heart surgery 2007. Pacer/difibrilator. 9 cardioversions Significant Family History: no pertinent family hx - Social History Smoking Status: Never smoker Exposure to second hand smoke: No Drug Use: none - Social Determinants of Health Will the patient participate in the screening: Yes Do you worry about a steady place to live?: No Do you have any problems with any of the following?: No known problems In the past 12 months,have you had to go without utilities?: No Transportation Issues: No Has anyone in your support network made you feel unsafe?: No Have you or anyone in your house had to go w/o enough food: No - Nursing Vital Signs Nursing Vital Signs: Initial Vital Signs Pulse Rate 60 05/11/25 10:22 Respiratory Rate 21 05/11/25 10:22 Blood Pressure 99/61 05/11/25 10:22 Pain Scale Pain Intensity 5 - Physical Exam General Appearance: no apparent distress, alert Eye Exam: PERRL/EOMI, eyes nml inspection Ears, Nose, Throat Exam: normal ENT inspection, pharynx normal, moist mucous membranes Neck Exam: normal inspection, non-tender, supple, full range of motion Respiratory Exam: normal breath sounds, lungs clear, No respiratory distress Cardiovascular Exam: regular rate/rhythm, normal heart sounds Gastrointestinal/Abdomen Exam: soft, tenderness (RLQ), No mass Back Exam: normal inspection, normal range of motion, No CVA tenderness, No vertebral tenderness Extremity Exam: normal inspection, normal range of motion, pelvis stable Neurologic Exam: alert, oriented x 3, cooperative, normal mood/affect, nml cerebellar function, sensation nml, No motor deficits Skin Exam: normal color, warm, dry SpO2: 98 - Course Nursing assessment & vital signs reviewed: Yes EKG Interpreted by Me: RATE (61), Non-specific ST Changes (NO stemi), Other (IVCD) Ordered Tests: Active Orders 24 hr Category Date Time Status EKG-ER Only STAT Care 05/11/25 10:53 Active IV Insertion STAT Care 05/11/25 10:53 Active NPO (ED) STAT Care 05/11/25 10:53 Active ABDOMEN AND PELVIS W CONTRAST [CT] Stat Exams 05/11/25 10:54 Completed CBC W DIFF Stat Lab 05/11/25 10:53 Completed CMP Stat Lab 05/11/25 10:45 Completed LIPASE Stat Lab 05/11/25 10:45 Completed Lactic Acid Stat Lab 05/11/25 11:00 Completed PROTIME WITH INR Stat Lab 05/11/25 10:45 Completed TROPONIN Q3H Lab 05/11/25 10:45 Completed TROPONIN Q3H Lab 05/11/25 14:10 Completed UA W/RFX UR CULTURE Stat Lab 05/11/25 14:11 Completed Medication Summary Discontinued Medications Generic Name Dose Route Start Last Admin Trade Name Freq PRN Reason Stop Dose Admin Sodium Chloride 1,000 mls @ 999 mls/hr 05/11/25 10:53 05/11/25 12:10 Sodium Chloride 0.9% 1000 Ml IV 05/11/25 11:53 Infused .Q1H1M STA Infusion Sodium Chloride Confirm 05/11/25 11:06 Sodium Chloride 0.9% 1000 Ml Administered 05/11/25 11:07 Dose 1,000 mls @ ud .ROUTE .STK-MED ONE Morphine Sulfate 4 mg 05/11/25 10:53 05/11/25 11:08 Morphine Sulfate 4 Mg/Ml Injection IV 05/11/25 10:54 4 mg STAT ONE Administration Morphine Sulfate Confirm 05/11/25 11:06 Morphine Sulfate 4 Mg/Ml Injection Administered 05/11/25 11:07 Dose 4 mg .ROUTE .STK-MED ONE Ondansetron HCl 4 mg 05/11/25 10:53 05/11/25 11:07 Ondansetron Hcl 4 Mg/2 Ml Vial IV 05/11/25 10:54 4 mg STAT ONE Administration Ondansetron HCl Confirm 05/11/25 11:05 Ondansetron Hcl 4 Mg/2 Ml Vial Administered 05/11/25 11:06 Dose 4 mg .ROUTE .STK-MED ONE Lab/Rad Data: Laboratory Result Diagrams 05/11/25 10:53 05/11/25 10:45 Laboratory Results 05/11/25 05/11/25 05/11/25 Range/Units 14:11 14:10 11:00 WBC (4.23-9.07) x10^3/uL RBC (4.63-6.08) x10^6/uL Hgb (13.7-17.5) g/dL Hct (40.1-51.0) % MCV (79.0-92.2) fL MCH (25.7-32.2) pg MCHC (32.3-36.5) g/dL RDW (11.6-14.4) % Plt Count (163-337) x10^3/uL MPV (9.4-12.4) fL Gran % (34.0-67.9) % Immature Gran % (Auto) (0.001-0.429) % Nucleat RBC Rel Count (0.00-0.2) % Eos # (Auto) (0.04-0.54) x10^3/uL Immature Gran # (Auto) (0.001-0.031) x10^3u/L Absolute Lymphs (auto) (1.32-3.57) x10^3/uL Absolute Monos (auto) (0.30-0.82) x10^3/uL Absolute Nucleated RBC (0.00-0.012) x10^3u/L Lymphocytes % (21.8-53.1) % Monocytes % (5.3-12.2) % Eosinophils % (0.8-7.0) % Basophils % (0.2-1.2) % Absolute Granulocytes (1.78-5.38) x10^3/uL Basophils # (0.01-0.08) x10^3/uL PT (9.4-12.5) SECONDS INR (0.8-3.0) Sodium (135-145) mmol/L Potassium (3.5-5.1) mmol/L Chloride (98-107) mmol/L Carbon Dioxide (22-30) mmol/L Anion Gap (5-15) MEQ/L BUN (9-20) mg/dL Creatinine (0.66-1.25) mg/dL Estimated GFR ML/MIN Glucose (74-106) mg/dL Lactic Acid 1.7 (0.4-2.0) Calcium (8.4-10.2) mg/dL Total Bilirubin (0.2-1.3) mg/dL AST (17-59) U/L ALT (0-50) U/L Alkaline Phosphatase (38-126) U/L Troponin I < 0.012 (0.000-0.033) ng/mL Serum Total Protein (6.3-8.2) g/dL Albumin (3.5-5.0) g/dL Lipase (23-300) U/L Urine Color Yellow (Yellow) Urine Appearance Clear (Clear) Urine pH 7.5 (4.6-8.0) Ur Specific Downey >=1.030 A (1.005-1.030) Urine Protein Negative (Negative) Urine Glucose (UA) >=1000 A (Negative) mg/dL Urine Ketones Negative (Negative) Urine Blood Trace (Negative) Urine Nitrite Negative (Negative) Urine Bilirubin Negative (Negative) Urine Urobilinogen 1.0 A (0.2) mg/dL Ur Leukocyte Esterase Negative (Negative) U Hyaline Cast (Auto) NONE SEEN (0-2) /LPF Urine Microscopic RBC 6-10 A (0-5) /HPF Urine Microscopic WBC 0-2 (0-5) /HPF Ur Epithelial Cells None Seen (None Seen) /HPF Urine Bacteria None Seen (None Seen) /HPF Urine Culture Reflexed NO (NO) 05/11/25 05/11/25 05/11/25 Range/Units 10:53 10:45 10:45 WBC 6.1 (4.23-9.07) x10^3/uL RBC 3.62 L (4.63-6.08) x10^6/uL Hgb 9.4 L (13.7-17.5) g/dL Hct 31.4 L (40.1-51.0) % MCV 86.7 (79.0-92.2) fL MCH 26.0 (25.7-32.2) pg MCHC 29.9 L (32.3-36.5) g/dL RDW 17.4 H (11.6-14.4) % Plt Count 296 (163-337) x10^3/uL MPV 10.3 (9.4-12.4) fL Gran % 72.5 H (34.0-67.9) % Immature Gran % (Auto) 0.3 (0.001-0.429) % Nucleat RBC Rel Count 0.0 (0.00-0.2) % Eos # (Auto) 0.10 (0.04-0.54) x10^3/uL Immature Gran # (Auto) 0.02 (0.001-0.031) x10^3u/L Absolute Lymphs (auto) 1.02 L (1.32-3.57) x10^3/uL Absolute Monos (auto) 0.51 (0.30-0.82) x10^3/uL Absolute Nucleated RBC 0.00 (0.00-0.012) x10^3u/L Lymphocytes % 16.8 L (21.8-53.1) % Monocytes % 8.4 (5.3-12.2) % Eosinophils % 1.7 (0.8-7.0) % Basophils % 0.3 (0.2-1.2) % Absolute Granulocytes 4.39 (1.78-5.38) x10^3/uL Basophils # 0.02 (0.01-0.08) x10^3/uL PT 67.4 H (9.4-12.5) SECONDS INR 7.02 H* (0.8-3.0) Sodium (135-145) mmol/L Potassium (3.5-5.1) mmol/L Chloride (98-107) mmol/L Carbon Dioxide (22-30) mmol/L Anion Gap (5-15) MEQ/L BUN (9-20) mg/dL Creatinine (0.66-1.25) mg/dL Estimated GFR ML/MIN Glucose (74-106) mg/dL Lactic Acid (0.4-2.0) Calcium (8.4-10.2) mg/dL Total Bilirubin (0.2-1.3) mg/dL AST (17-59) U/L ALT (0-50) U/L Alkaline Phosphatase (38-126) U/L Troponin I < 0.012 (0.000-0.033) ng/mL Serum Total Protein (6.3-8.2) g/dL Albumin (3.5-5.0) g/dL Lipase (23-300) U/L Urine Color (Yellow) Urine Appearance (Clear) Urine pH (4.6-8.0) Ur Specific Downey (1.005-1.030) Urine Protein (Negative) Urine Glucose (UA) (Negative) mg/dL Urine Ketones (Negative) Urine Blood (Negative) Urine Nitrite (Negative) Urine Bilirubin (Negative) Urine Urobilinogen (0.2) mg/dL Ur Leukocyte Esterase (Negative) U Hyaline Cast (Auto) (0-2) /LPF Urine Microscopic RBC (0-5) /HPF Urine Microscopic WBC (0-5) /HPF Ur Epithelial Cells (None Seen) /HPF Urine Bacteria (None Seen) /HPF Urine Culture Reflexed (NO) 05/11/25 Range/Units 10:45 WBC (4.23-9.07) x10^3/uL RBC (4.63-6.08) x10^6/uL Hgb (13.7-17.5) g/dL Hct (40.1-51.0) % MCV (79.0-92.2) fL MCH (25.7-32.2) pg MCHC (32.3-36.5) g/dL RDW (11.6-14.4) % Plt Count (163-337) x10^3/uL MPV (9.4-12.4) fL Gran % (34.0-67.9) % Immature Gran % (Auto) (0.001-0.429) % Nucleat RBC Rel Count (0.00-0.2) % Eos # (Auto) (0.04-0.54) x10^3/uL Immature Gran # (Auto) (0.001-0.031) x10^3u/L Absolute Lymphs (auto) (1.32-3.57) x10^3/uL Absolute Monos (auto) (0.30-0.82) x10^3/uL Absolute Nucleated RBC (0.00-0.012) x10^3u/L Lymphocytes % (21.8-53.1) % Monocytes % (5.3-12.2) % Eosinophils % (0.8-7.0) % Basophils % (0.2-1.2) % Absolute Granulocytes (1.78-5.38) x10^3/uL Basophils # (0.01-0.08) x10^3/uL PT (9.4-12.5) SECONDS INR (0.8-3.0) Sodium 141 (135-145) mmol/L Potassium 4.6 (3.5-5.1) mmol/L Chloride 104 (98-107) mmol/L Carbon Dioxide 27 (22-30) mmol/L Anion Gap 13.9 (5-15) MEQ/L BUN 21 H (9-20) mg/dL Creatinine 0.96 (0.66-1.25) mg/dL Estimated GFR 82.9 ML/MIN Glucose 133 H (74-106) mg/dL Lactic Acid (0.4-2.0) Calcium 9.5 (8.4-10.2) mg/dL Total Bilirubin 0.90 (0.2-1.3) mg/dL AST 27 (17-59) U/L ALT 23 (0-50) U/L Alkaline Phosphatase 77 (38-126) U/L Troponin I (0.000-0.033) ng/mL Serum Total Protein 6.9 (6.3-8.2) g/dL Albumin 4.0 (3.5-5.0) g/dL Lipase 108 (23-300) U/L Urine Color (Yellow) Urine Appearance (Clear) Urine pH (4.6-8.0) Ur Specific Downey (1.005-1.030) Urine Protein (Negative) Urine Glucose (UA) (Negative) mg/dL Urine Ketones (Negative) Urine Blood (Negative) Urine Nitrite (Negative) Urine Bilirubin (Negative) Urine Urobilinogen (0.2) mg/dL Ur Leukocyte Esterase (Negative) U Hyaline Cast (Auto) (0-2) /LPF Urine Microscopic RBC (0-5) /HPF Urine Microscopic WBC (0-5) /HPF Ur Epithelial Cells (None Seen) /HPF Urine Bacteria (None Seen) /HPF Urine Culture Reflexed (NO) - Progress Progress Note: 05/11/25 13:27 Impression: 1. New moderate right and tiny left effusions with right lower lobe compressive atelectasis. No cardiomegaly. 2. New nonobstructing 1 cm left ureteropelvic junction calculus. 3. Again chronic findings including hiatal hernia, bilateral renal cysts, arteriosclerotic disease, chronic bony findings, and old granulomatous disease. 05/11/25 14:05 Patient has a 1 cm UPJ calculus patient has an elevated INR I advised the patient that he needs to skip a dose of his Coumadin he reports he has a recheck tomorrow at the Coumadin clinic to evaluate his INR patient reports he has a urologist patient was started on Flomax restarted on Tylenol advised him to not take NSAIDs given that he is at a bleeding risk 05/11/25 15:[address] Gallegos's office who recommends a follow-up with the patient they do the lithotripsy on Friday they will call the patient for setting up for appointment recommend patient return for any new or worsening symptoms patient be discharged at this time - Departure Clinical Impression: Elevated INR, Renal stone Condition: Stable Critical Care Time: No Referrals: DANN FLORIAN [Primary Care Provider, [facility]] - Follow up/PCP as directed Instructions: Abdominal pain, Kidney stones in adults Additional Instructions: Need to follow-up with a urologist for potential lithotripsy advised her to hold her dose of Coumadin and to have your INR rechecked was 7.02 today Prescriptions: Tamsulosin HCl [Flomax] 0.4 mg PO DAILY #30 cap
[2025-05-11] MEDS ORDERED: Zofran 4 MG/2 ML VIAL ONE (11:05)
[2025-05-11 11:06] LABS: BASOPHIL % 0.3 % (0.2-1.2); Basophil (Absolute #) 0.02 x10^3/uL (0.01-0.08); Eosinophil (Absolute #) 0.10 x10^3/uL (0.04-0.54); Hematocrit 31.4 % (40.1-51.0); Hemoglobin 9.4 g/dL (13.7-17.5); IMMATURE GRAN # 0.02 x10^3u/L (0.001-0.031); IMMATURE GRAN % 0.3 % (0.001-0.429); Lymphocyte (Absolute #) 1.02 x10^3/uL (1.32-3.57); Mean Corpuscular Hemoglobin 26.0 pg (25.7-32.2); Mean Corpuscular Hgb Concent. 29.9 g/dL (32.3-36.5); Monocyte (Absolute #) 0.51 x10^3/uL (0.30-0.82); NUCLEATED RBC # 0.00 x10^3u/L (0.00-0.012); NUCLEATED RBC % 0.0 % (0.00-0.2); Platelet Count 296 x10^3/uL (163-337); Red Blood Count 3.62 x10^6/uL (4.63-6.08); White Blood Count 6.1 x10^3/uL (4.23-9.07)
[2025-05-11] MEDS ORDERED: MORPHINE SULFATE 4 MG INJ ONE (11:06)
[2025-05-11] MEDS: Zofran 4 MG/2 ML VIAL IV ONE (11:07)
[2025-05-11] MEDS: MORPHINE SULFATE 4 MG INJ IV ONE (11:08)
[2025-05-11 11:22] LABS: Calcium 9.5 mg/dL (8.4-10.2); Carbon Dioxide 27.0 mmol/L (22-30); Creatinine 1 0.96 mg/dL (0.66-1.25); EST GLOMERULAR FILTRATION RATE 82.9 ML/MIN; Glucose 133.0 mg/dL (74-106); Potassium 4.6 mmol/L (3.5-5.1); SGOT/AST 27.0 U/L (17-59); SGPT/ALT 23.0 U/L (0-50); Total Protein 6.9 g/dL (6.3-8.2)
[2025-05-11 11:33] LABS: PROTIME 67.4 SECONDS (9.4-12.5)
[2025-05-11 11:37] LABS: INR 7.02 (0.8-3.0)
--- NOTE | 2025-05-11 13:16 | XRAY ---
Indication: Right lower quadrant pain. Multiple contiguous axial images obtained through the abdomen and pelvis using 80 cc Isovue 370 contrast. Comparison: February 14, 2022 Lung bases demonstrates new incompletely visualized moderate right effusion with moderate right lower lobe compressive atelectasis. Also new tiny left effusion. There remains a few tiny bilateral calcified granulomas. Heart not enlarged again with incompletely visualized pacer lead. Stable small hiatal hernia. Noncontrasted stomach and bowel loops appear nonobstructed with normal appendix. Again cholecystectomy and a few tiny splenic calcified granulomas. Both kidneys enhance and excrete with grossly stable small bilateral renal cysts. Previous 1 cm left renal calculus now seen ureteropelvic without hydronephrosis. No free fluid/air. Remaining liver, pancreas, spleen, adrenal glands, kidneys, ureters, and bladder are unremarkable. Again minimal scattered aortoiliac calcifications. No AAA or pathologic retroperitoneal lymphadenopathy. Osseous structures intact again with osteopenia, mild/moderate multilevel thoracolumbar degenerative spondylosis, multilevel thoracolumbar Schmorl nodes, remote L5 superior endplate fracture, and mild degenerative changes both hips. Impression: 1. New moderate right and tiny left effusions with right lower lobe compressive atelectasis. No cardiomegaly. 2. New nonobstructing 1 cm left ureteropelvic junction calculus. 3. Again chronic findings including hiatal hernia, bilateral renal cysts, arteriosclerotic disease, chronic bony findings, and old granulomatous disease.
[2025-05-11 14:26] LABS: Glucose, Urine >=1000 mg/dL (Negative); Protein,Urine Dip Negative (Negative); WBC 0-2 /HPF (0-5)
[2025-05-11 15:39] VITALS: BP 103/68; PULSE 60; RESP 10
[2025-05-11 15:44] VITALS: O2SAT 98
== END 2025-05-11 16:04 | disposition home or self-care (01) ==
LOC: ED 09:29
DX: N20.0 Calculus of kidney (principal); R79.1 Abnormal coagulation profile; R10.31 Right lower quadrant pain; I10 Essential (primary) hypertension; E11.9 Type 2 diabetes mellitus without complications; Z79.01 Long term (current) use of anticoagulants; Z79.84 Long term (current) use of oral hypoglycemic drugs; Z79.4 Long term (current) use of insulin; Z79.899 Other long term (current) drug therapy